=== PATIENT | male | born 1960 | race Caucasian/White ===

== ENCOUNTER 2020-10-08 12:18 | Emergency (ER) | payer OTHER ==
--- OUTSIDE RECORDS SUMMARY | 2020-10-08 12:21 | XMS REPORT | Continuity of Care Document ---
:1960 Author Organization [facility] t Address [address] [place] [address] Care Team Providers Name Role Phone Rosalio Charlton MD Attending Clinician Problems This patient has no known problems. Allergies, Adverse Reactions, Alerts This patient has no known allergies or adverse reactions. Medications This patient has no known medications. Procedures This patient has no known procedures. Encounters Start End Encounter Admission Attending Care Care Encounter Source Date/Time Date/Time Type Type Clinicians Facility Department ID 2020-07-27 2020-07-27 Office MARCK Charlton [id number] 16:15:58 17:26:09 Visit Rosalio Smallwood [id number] [facility] [id number] [facility] [id number] [facility] [address] Results This patient has no known results.
[2020-10-08 13:16] LABS: Absolute Lymphocytes (CBC) 1.4 K/uL (0.7-4.9); Basophils % 0.4 % (0-1.3); Hematocrit 46.2 % (39.6-49.0); MPV 8.4 fL (7.6-11.3); RBC Red Blood Cell Count 4.97 M/uL (4.33-5.43)
[2020-10-08] MEDS ORDERED: ONDANSETRON 4 MG/2 ML VIAL ONE (13:16)
[2020-10-08] MEDS ORDERED: MEPERIDINE HCL 25 MG/ML SYR ONE (13:17)
[2020-10-08 13:32] LABS: Potassium 4.3 mmol/L (3.5-5.1)
--- NOTE | 2020-10-08 13:43 | RAD REPORT ---
EXAM DESCRIPTION: CT - Head C Spine Cap Javier Almendarez - 10/08/2020 1:19 pm CLINICAL HISTORY: Trauma, head and neck injury. Chest, abdomen and pelvis pain. fall from truck, onto back COMPARISON: No comparisons TECHNIQUE: CT head without contrast. CT cervical spine without contrast with coronal and sagittal reformatted images. CT chest, abdomen and pelvis with IV contrast (approximately 100 mL nonionic IV contrast) with alfaro l and sagittal reformatted images of the spine. All CT scans are performed using dose optimization technique as appropriate and may include automated exposure control or mA/KV adjustment according to patient size. FINDINGS: CT HEAD WITHOUT CONTRAST: No intracranial hemorrhage, hydrocephalus or extra-axial fluid collection. No areas of brain edema o r midline shift. Calcified extra-axial lesion along the right parietal region measuring 10 mm is like ly a meningioma. Mild mucoperiosteal thickening affects the right maxillary antrum. The paranasal sinuses and mastoids are otherwise clear. The calvarium is intact. CT CERVICAL SPINE WITHOUT CONTRAST: No fracture or subluxation. Mild lower cervical degenerative changes. The prevertebral soft tissues a re normal in thickness. CT CHEST, ABDOMEN, PELVIS WITH CONTRAST: The lungs are clear.No pneumothorax or pericardial/pleural fluid. No evidence of intra-abdominal visceral injury, free fluid or free air. No concerning pelvic findings. Left L2 transverse process demonstrates a mildly displaced fracture. IMPRESSION: Mildly displaced left L2 transverse process fracture.
--- NOTE | 2020-10-08 13:52 | RAD REPORT ---
EXAM DESCRIPTION: RAD - Ankle Left 3 View - 10/08/2020 1:40 pm CLINICAL HISTORY: PAIN COMPARISON: No comparisons FINDINGS: A large plantar calcaneal spur is noted. No acute fracture or dislocation is seen.
[2020-10-08] MEDS ORDERED: CYCLOBENZAPRINE 10 MG TAB ONE (14:13)
[2020-10-08] MEDS ORDERED: HYDROCODONE/APAP 10/325 TAB ONE (14:13)
--- NOTE | 2020-10-08 14:51 | EDPHYS ---
Physician Documentation [facility] Name: Hiram Ugarte Age: 60 yrs Sex: Male : 1960 Arrival Date: 10/08/2020 Time: 12:22 Bed 5 Private MD: ED Physician Sawyer Watt HPI: 10/08 13:35 This 60 yrs old Male presents to ER via Wheelchair with complaints of Fall rn Injury. 13:35 Details of fall: The patient fell from a height, truck. Onset: The symptoms/episode rn began/occurred just prior to arrival. Associated injuries: The patient sustained right back, left ankle. Severity of symptoms: At their worst the symptoms were moderate, in the emergency department the symptoms are unchanged. The patient has not experienced similar symptoms in the past. Reports truck was moving, tried to stop it, fell backward out of open door right onto back, no LOC, molina snot think hit head, remembers all events, reports pain to upper and mid back, as well as left ankle. No anticoagulation. . Historical: - Allergies: 12:44 No Known Allergies; aa5 - PMHx: 12:44 Diabetes - NIDDM; aa5 - PSHx: 12:44 Cataracts; aa5 - Immunization history:: Adult Immunizations unknown. - Immunization history: Last tetanus immunization: unknown. - Family history:: not pertinent. - Social history:: Smoking status: Patient denies any tobacco usage or history of. - Hospitalizations: : No recent hospitalization is reported. ROS: 13:35 Constitutional: Negative for fever, chills, and weight loss, Eyes: Negative for injury, rn pain, redness, and discharge, Neck: Negative for injury, pain, and swelling, Cardiovascular: Negative for chest pain, palpitations, and edema, Respiratory: Negative for shortness of breath, cough, wheezing, and pleuritic chest pain, Abdomen/GI: Negative for abdominal pain, nausea, vomiting, diarrhea, and constipation, Back: + injury and pain to mid and upper back MS/Extremity: + mild pain to left ankle. Skin: Negative for injury, rash, and discoloration, Neuro: Negative for headache, weakness, numbness, tingling, and seizure. Exam: 13:35 Constitutional: This is a well developed, well nourished patient who is awake, alert, rn appears in pain Head/Face: Normocephalic, atraumatic. Eyes: Pupils equal round and reactive to light, extra-ocular motions intact. Lids and lashes normal. Conjunctiva and sclera are non-icteric and not injected. Cornea within normal limits. Periorbital areas with no swelling, redness, or edema. Neck: Trachea midline, no midline tenderness Chest/axilla: Normal chest wall appearance and motion. Nontender with no deformity. Cardiovascular: Regular rate and rhythm. No pulse deficits. Respiratory: No increased work of breathing, no retractions or nasal flaring. Abdomen/GI: soft, non-tender Back: No spinal tenderness. + large linear abrasion/contusion across right posterior thorax, no crepitus, no bleeding. Skin: Warm, dry MS/ Extremity: Pulses equal, no cyanosis. Neurovascular intact. Full, normal range of motion. Equal circumference. Neuro: Awake and alert, GCS 15, oriented to person, place, time, and situation. Vital Signs: 12:35 BP 125 / 71; Pulse 76; Resp 16 S; Temp 98.0(TE); Pulse Ox 97% on R/A; aa5 13:43 BP 138 / 74; Pulse 73; Resp 16; Pulse Ox 100% on R/A; mh5 14:00 BP 140 / 77; Pulse 72; Resp 15; Pulse Ox 97% ; jl7 14:30 BP 136 / 79; Pulse 88; Resp 17; Pulse Ox 97% ; jl7 Carmen Coma Score: 14:00 Eye Response: spontaneous(4). Verbal Response: oriented(5). Motor Response: obeys jl7 commands(6). Total: 15. Trauma Score (Adult): 14:00 Eye Response: spontaneous(1); Verbal Response: oriented(1); Motor Response: obeys jl7 commands(2); Systolic BP: > 89 mm Hg(4); Respiratory Rate: 10 to 29 per min(4); [place] Score: 15; Trauma Score: 12 MDM: 12:46 Patient medically screened. rn 14:49 Differential diagnosis: abrasion, contusion, fracture, sprain, strain. Data reviewed: rn vital signs, nurses notes, lab test result(s), radiologic studies, CT scan, plain films, and as a result, I will discharge patient. Counseling: I had a detailed discussion with the patient and/or guardian regarding: the historical points, exam findings, and any diagnostic results supporting the discharge/admit diagnosis, lab results, radiology results, the need for outpatient follow up, to return to the emergency department if symptoms worsen or persist or if there are any questions or concerns that arise at home. Response to treatment: the patient's symptoms have mildly improved after treatment, and as a result, I will discharge patient. Special discussion: I discussed with the patient/guardian in detail that at this point there is no indication for admission to the hospital. It is understood, however, that if the symptoms persist or worsen the patient needs to return immediately for re-evaluation. 10/08 12:51 Order name: CBC with Diff; Complete Time: 13:35 rn 10/08 12:51 Order name: Basic Metabolic Panel; Complete Time: 13:35 rn 10/08 12:51 Order name: CT Traumagram (Head C Spine CAP W Con); Complete Time: 13:53 rn 10/08 12:51 Order name: XRAY Ankle LEFT 3 view; Complete Time: 13:53 rn 10/08 14:37 Order name: CREATININE WHOLE BLOOD; Complete Time: 14:49 EDMS 10/08 12:51 Order name: IV Start; Complete Time: 13:05 rn Administered Medications: 13:05 Drug: Demerol 25 mg Route: IVP; Site: right antecubital; aa5 13:30 Follow up: Response: No adverse reaction; Pain is decreased jl7 13:05 Drug: Zofran (Ondansetron) 4 mg Route: IVP; Site: right antecubital; aa5 13:49 Follow up: Response: No adverse reaction jl7 14:00 Drug: Baxter 10 mg-325 mg 1 tabs Route: PO; jl7 14:00 Drug: Flexeril 10 mg Route: PO; jl7 Disposition: 10/08/20 14:51 Discharged to Home. Impression: Fracture of second lumbar vertebra - left transverse process. - Condition is Stable. - Discharge Instructions: Transverse Process Fracture. - Prescriptions for Tylenol- Codeine #3 300-30 mg Oral Tablet - take 1 tablet by ORAL route every 4-6 hours As needed; 20 tablet. Cyclobenzaprine 10 mg Oral Tablet - take 1 tablet by ORAL route every 8 hours As needed; 20 tablet. - Medication Reconciliation Form, Thank You Letter, Antibiotic Education, Prescription Opioid Use, Work release form form. - Follow up: Private Physician; When: As needed; Reason: Recheck today's complaints, Re-evaluation by your physician. - Problem is new. - Symptoms have improved. Signatures: Dispatcher [employer] EDMS Sawyer Watt MD MD rn Calderon, Audri, RN RN aa5 Ric Garcia RN RN jl7 Corrections: (The following items were deleted from the chart) 15:27 14:51 10/08/2020 14:51 Discharged to Home. Impression: Fracture of second lumbar jl7 vertebra - left transverse process. Condition is Stable. Forms are Work release form, Medication Reconciliation Form, Thank You Letter, Antibiotic Education, Prescription Opioid Use. Follow up: Private Physician; When: As needed; Reason: Recheck today's complaints, Re-evaluation by your physician. Problem is new. Symptoms have improved. rn
--- NOTE | 2020-10-08 14:51 | ER ---
Nurse's Notes [facility] Name: Hiram Ugarte Age: 60 yrs Sex: Male : 1960 Arrival Date: 10/08/2020 Time: 12:22 Bed 5 Private MD: Diagnosis: Fracture of second lumbar vertebra-left transverse process Presentation: 10/08 12:35 Chief complaint: Patient states: "I was trying to stop my truck from going and I ended aa5 up falling straight onto my back". Abrasion noted to right middle back, no active bleeding noted. Pt denies head injury, denies LOC. Pt c/o back pain. 12:35 Coronavirus screen: At this time, the client does not indicate any symptoms associated aa5 with coronavirus-19. Ebola Screen: Patient negative for fever greater than or equal to 101.5 degrees Fahrenheit, and additional compatible Ebola Virus Disease symptoms. Initial Sepsis Screen: Does the patient meet any 2 criteria? No. Patient's initial sepsis screen is negative. Does the patient have a suspected source of infection? No. Patient's initial sepsis screen is negative. Risk Assessment: Do you want to hurt yourself or someone else? Patient reports no desire to harm self or others. Onset of symptoms was October 2020. 12:35 Acuity: DANICA 3 aa5 12:35 Method Of Arrival: Wheelchair aa5 14:30 Care prior to arrival: None. jl7 Historical: - Allergies: 12:44 No Known Allergies; aa5 - PMHx: 12:44 Diabetes - NIDDM; aa5 - PSHx: 12:44 Cataracts; aa5 - Immunization history:: Adult Immunizations unknown. - Immunization history: Last tetanus immunization: unknown. - Family history:: not pertinent. - Social history:: Smoking status: Patient denies any tobacco usage or history of. - Hospitalizations: : No recent hospitalization is reported. Screenin:44 Abuse screen: Denies threats or abuse. Denies injuries from another. Nutritional jl7 screening: No deficits noted. Tuberculosis screening: No symptoms or risk factors identified. Fall Risk IV access (20 points). Total Bañuelos Fall Scale indicates No Risk (0-24 pts). Primary Survey: 14:00 NO uncontrolled hemorrhage observed. Breathing/Chest: Respiratory pattern: regular, jl7 Respiratory effort: spontaneous, unlabored, Chest inspection: symmetrical rise and fall of the chest. Circulation: Skin color: pink, Skin temperature: warm. Disability Alert. Exposure/Environment: A warming method has been applied: A warm blanket has been provided to the patient. 14:30 Reassessment Breathing/Chest Respiratory pattern Regular Respiratory effort Spontaneous jl7 Unlabored Chest inspection Symmetrical Circulation Color [place] Disability Alert. Assessment: 13:44 General: Appears in no apparent distress. uncomfortable, Behavior is calm, cooperative, jl7 appropriate for age, Pt returned from CT, reports decreased pain post pain medication. Pain: Complains of pain in back and left leg Pain currently is 2 out of 10 on a pain scale. at worst was 10 out of 10 on a pain scale. Quality of pain is described as sharp, shooting, Pain began suddenly, Is intermittent. Neuro: Level of Consciousness is awake, alert, obeys commands, Oriented to person, place, time, situation. Cardiovascular: Patient's skin is warm and dry. Respiratory: Airway is patent Respiratory effort is even, unlabored, Respiratory pattern is regular, symmetrical. Derm: Skin is pink, warm \\T\\ dry. 14:30 Reassessment: Patient appears in no apparent distress at this time. No changes from jl7 previously documented assessment. Patient and/or family updated on plan of care and expected duration. Pain level reassessed. Patient is alert, oriented x 3, equal unlabored respirations, skin warm/dry/pink. Vital Signs: 12:35 BP 125 / 71; Pulse 76; Resp 16 S; Temp 98.0(TE); Pulse Ox 97% on R/A; aa5 13:43 BP 138 / 74; Pulse 73; Resp 16; Pulse Ox 100% on R/A; mh5 14:00 BP 140 / 77; Pulse 72; Resp 15; Pulse Ox 97% ; jl7 14:30 BP 136 / 79; Pulse 88; Resp 17; Pulse Ox 97% ; jl7 [place] Coma Score: 14:00 Eye Response: spontaneous(4). Verbal Response: oriented(5). Motor Response: obeys jl7 commands(6). Total: 15. Trauma Score (Adult): 14:00 Eye Response: spontaneous(1); Verbal Response: oriented(1); Motor Response: obeys jl7 commands(2); Systolic BP: > 89 mm Hg(4); Respiratory Rate: 10 to 29 per min(4); Carmen Score: 15; Trauma Score: 12 ED Course: 12:22 Patient arrived in ED. ds1 12:35 Arm band placed on. aa5 12:46 Sawyer Watt MD is Attending Physician. rn 12:47 Triage completed. aa5 12:52 Ric Garcia, MARIN is Primary Nurse. jl7 13:00 Initial lab(s) drawn, by ED staff, sent to lab. Inserted saline lock: 20 gauge in right aa5 antecubital area, using aseptic technique. Blood collected. IV inserted by SANIA Espinoza. 13:06 Inserted saline lock:. mh5 13:07 Patient has correct armband on for positive identification. Warm blanket given. Pulse mh5 ox on. NIBP on. 13:07 CBC with Diff Sent. mh5 13:07 Basic Metabolic Panel Sent. mh5 13:19 CT Traumagram (Head C Spine CAP W Con) In Process Unspecified. EDMS 13:39 XRAY Ankle LEFT 3 view In Process Unspecified. EDMS 14:00 Patient maintains SpO2 saturation greater than 95% on room air. Thermoregulation: warm jl7 blanket given to patient. 15:15 No provider procedures requiring assistance completed. IV discontinued, intact, jl7 bleeding controlled, No redness/swelling at site. Pressure dressing applied. Administered Medications: 13:05 Drug: Demerol 25 mg Route: IVP; Site: right antecubital; aa5 13:30 Follow up: Response: No adverse reaction; Pain is decreased jl7 13:05 Drug: Zofran (Ondansetron) 4 mg Route: IVP; Site: right antecubital; aa5 13:49 Follow up: Response: No adverse reaction jl7 14:00 Drug: [place] 10 mg-325 mg 1 tabs Route: PO; jl7 14:00 Drug: Flexeril 10 mg Route: PO; jl7 Outcome: 14:51 Discharge ordered by MD. rn 15:15 Discharged to home via wheelchair, with significant other. jl7 15:15 Condition: stable 15:15 Discharge instructions given to patient, significant other, Instructed on discharge instructions, follow up and referral plans. medication usage, Demonstrated understanding of instructions, follow-up care, medications, Prescriptions given X 2. 15:27 Patient left the ED. jl7 Signatures: Dispatcher [employer] RAVENAutumn Deshpande ds1 Sawyer Watt MD MD rn Calderon, Audri, RN RN 5 Estela Andersen [facility] Ric Garcia RN RN jl7 Corrections: (The following items were deleted from the chart) 12:47 12:42 Arm band placed on aa5 aa5
[2020-10-08 16:37] VITALS: TEMP 98
[2020-10-08 16:39] VITALS: O2SAT 97
[2020-10-08 16:41] VITALS: BP 136/79
== END 2020-10-08 15:27 | disposition home or self-care (01) ==
LOC: ER 12:18
DX: S32.029A Unspecified fracture of second lumbar vertebra, initial encounter for closed fracture (principal); V87.8XXA Person injured in other specified noncollision transport accidents involving motor vehicle (traffic), initial encounter; E11.9 Type 2 diabetes mellitus without complications
CPT/HCPCS: 85025; 80048; 36415; 82565; 70450; 72125; 71260; 74177; 73610; 96375; 96374; 99284; Q9967; J2405; J2175